=== PATIENT | female | born 1935 | race Caucasian/White ===

== ENCOUNTER 2018-03-23 11:10 | Outpatient (CLI) | payer MEDICARE, MEDICAID | END 2018-03-23 23:59 | disposition home or self-care (01) | LOC: RAD 11:10 | PROVIDERS: ATTEND Psychiatry & Neurology Neurology | DX: G40.909 Epilepsy, unspecified, not intractable, without status epilepticus (principal); I10 Essential (primary) hypertension; Z87.891 Personal history of nicotine dependence | CPT/HCPCS: 95816 ==

== ENCOUNTER 2018-03-31 12:36 | Emergency (ER) | payer MEDICARE, MEDICAID ==
[~2018-03-31] VITALS: Ht 160 cm; Wt 50.0 kg
[2018-03-31 13:07] LABS: BASOPHILS % (AUTO) 0.5 % (0-1); EOSINOPHILS # (AUTO) 0.2 X10'3 (0-0.9); EOSINOPHILS % (AUTO) 2.5 % (0-6); HEMATOCRIT 39.6 % (35.0-45.0); HEMOGLOBIN 12.9 g/dl (12.0-16.0); LYMPHOCYTES # (AUTO) 1.5 X10'3 (1.1-4.8); MEAN CORPUSCULAR HEMOGLOBIN 30.6 PG (27.0-31.0); MEAN CORPUSCULAR HGB CONC 32.6 % (33.0-36.5); MEAN CORPUSCULAR VOLUME 93.8 FL (78-98); MEAN PLATELET VOLUME 8.4 FL (7.4-10.4); MONOCYTES # (AUTO) 0.4 X10'3 (0-0.9); NEUTROPHILS # (AUTO) 4.5 X10'3 (1.8-7.7); PLATELET COUNT 283 X10'3 (140-440); RED BLOOD COUNT 4.22 X10'6 (4.20-5.60); RED CELL DISTRIBUTION WIDTH 15.7 % (11.5-14.5); WHITE BLOOD COUNT 6.6 X10'3 (4.5-11.0)
[2018-03-31 13:19] LABS: ALANINE AMINOTRANSFERASE 21 U/L (12-78); ALBUMIN/GLOBULIN RATIO 1.1 (1.1-1.5); ALKALINE PHOSPHATASE 75 IU/L (46-116); ANION GAP 8 (8-16); ASPARTATE AMINO TRANSFERASE 24 U/L (10-37); BILIRUBIN,TOTAL 0.5 MG/DL (0.1-1.0); BLOOD UREA NITROGEN 17 MG/DL (7-18); BUN/CREATININE RATIO 15.9 (6.6-38.0); CALCIUM 9.7 MG/DL (8.5-10.1); CHLORIDE 105 MMOL/L (99-107); CREATININE 1.07 MG/DL (0.40-0.90); GLUCOSE 126 MG/DL (70-104); POTASSIUM 5.2 MMOL/L (3.5-5.1); SODIUM 144 MMOL/L (135-145); TOTAL CARBON DIOXIDE 31.3 MMOL/L (24-32); TOTAL PROTEIN 7.8 G/DL (6.4-8.2); eGFR 49 ML/MIN
[2018-03-31 13:29] LABS: ETHANOL < 0.010 GM/DL (0.0-0.010)
[2018-03-31 14:47] LABS: CLARITY,URINE CLOUDY (Clear); COLOR,URINE YELLOW (Yellow); GLUCOSE, URINE NEGATIVE (Neg); KETONES,URINE NEGATIVE (Neg); LEUKOCYTE ESTERASE ,URINE SMALL (Neg); NITRITES, URINE POSITIVE (Neg); OCCULT BLOOD,URINE NEGATIVE (Neg); PROTEIN,URINE NEGATIVE (Neg)
[2018-03-31 14:54] LABS: URINE AMPHETAMINE SCREEN NEGATIVE (Neg); URINE BARBITUATE SCREEN NEGATIVE (Neg); URINE BENZODIAZEPINES SCREEN POSITIVE (Neg); URINE CANNABINOID SCREEN NEGATIVE (Neg); URINE COCAINE SCREEN NEGATIVE (Neg); URINE METHADONE SCREEN NEGATIVE (Neg); URINE OPIATE SCREEN POSITIVE (Neg); URINE PHENCYCLIDINE SCREEN NEGATIVE (Neg)
[2018-03-31 14:55] LABS: UA COLLECTION TYPE CLN CATCH MIDSTREAM
[2018-03-31 15:01] LABS: BACTERIA,URINE 4+ /HPF (Neg); MUCUS STRANDS NONE SEEN /LPF (Neg); RBC,URINE NONE SEEN /HPF (0-2); SQUAMOUS EPITHELIAL CELL,UR FEW /LPF (FEW); WBC,URINE 50-100 /HPF (0-4)
[2018-03-31] MEDS: sulfamethoxazole/trimethoprim DS (800/160mg) tablet PO SCH ×2 (15:33→21:09)
[2018-03-31] MEDS: gabapentin 300mg capsule PO SCH ×2 (15:48→21:08)
[2018-03-31] MEDS ORDERED: gabapentin 400mg capsule PO SCH (16:00)
[2018-03-31] MEDS ORDERED: ACET-54 PO (17:20)
[2018-03-31] MEDS ORDERED: GABA300C PO (17:20)
[2018-03-31] MEDS ORDERED: ATOR20TA PO (17:20)
[2018-03-31] MEDS ORDERED: ASPI81TA52 PO (17:20)
[2018-03-31] MEDS ORDERED: FAMO20TA8 PO (17:20)
[2018-03-31] MEDS ORDERED: DULO20CA17 PO (17:20)
[2018-03-31] MEDS ORDERED: CARB200T8 PO ×2 (17:20)
[2018-03-31] MEDS ORDERED: TRAZ-218 PO (17:20)
[2018-03-31] MEDS ORDERED: ALPR-624 PO (17:20)
[2018-03-31] MEDS ORDERED: HYDR-4353 PO (17:20)
[2018-03-31] MEDS ORDERED: FOLI1TAB16 PO (17:20)
[2018-03-31] MEDS ORDERED: ALPRAZolam 0.5mg tablet PO PRN (17:50)
[2018-03-31] MEDS ORDERED: HYDROcodone/acetaminophen 10/325mg tab PO PRN (17:50)
[2018-03-31] MEDS ORDERED: acetaminophen 325mg tablet PO PRN (17:50)
[2018-03-31 18:15] LABS: CARBAMAZEPINE (TEGRETOL) < 0.5 UG/ML (4.0-12.0)
[2018-03-31 18:56] LABS: ACETAMINOPHEN < 2.0 UG/ML (10-30)
[2018-03-31] MEDS ORDERED: carBAMazepine 100mg chewable tablet PO SCH (21:00)
[2018-03-31] MEDS ORDERED: traZODone 50mg tablet PO SCH (21:00)
[2018-03-31] MEDS: famotidine 20mg tablet PO SCH (21:08)
[2018-04-01 05:30] VITALS: BP 136/82
[2018-04-01] MEDS ORDERED: duloxetine 20mg capsule.DR PO SCH (08:00)
[2018-04-01] MEDS ORDERED: carBAMazepine 100mg chewable tablet PO SCH (08:00)
[2018-04-01] MEDS: gabapentin 300mg capsule PO SCH ×3 (08:00→08:24)
[2018-04-01] MEDS ORDERED: aspirin 81mg tablet.DR PO SCH (08:00)
[2018-04-01] MEDS ORDERED: atorvastatin 20mg tablet PO SCH (08:00)
[2018-04-01] MEDS ORDERED: folic acid 1mg tablet PO SCH (08:00)
[2018-04-01] MEDS: famotidine 20mg tablet PO SCH (08:24)
[2018-04-01] MEDS: sulfamethoxazole/trimethoprim DS (800/160mg) tablet PO SCH (08:24)
[2018-04-01] MEDS ORDERED: CIPR-230 PO (10:46)
== END 2018-04-01 11:20 | disposition home or self-care (01) ==
LOC: ER 12:37
DX: N39.0 Urinary tract infection, site not specified (principal); R45.4 Irritability and anger; I25.10 Atherosclerotic heart disease of native coronary artery without angina pectoris; E78.00 Pure hypercholesterolemia, unspecified; I10 Essential (primary) hypertension; G89.29 Other chronic pain; L72.3 Sebaceous cyst; Z86.19 Personal history of other infectious and parasitic diseases; Z86.73 Personal history of transient ischemic attack (TIA), and cerebral infarction without residual deficits; Z95.1 Presence of aortocoronary bypass graft; Z60.2 Problems related to living alone; Z88.8 Allergy status to other drugs, medicaments and biological substances; Z79.82 Long term (current) use of aspirin; Z79.899 Other long term (current) drug therapy
CPT/HCPCS: 36415; 70450; 80053; 80156; 80305; 80320; 80329; 81001; 84443; 85025; 99285

== ENCOUNTER 2021-02-06 08:22 | Emergency (ER) | payer MEDICARE, MEDICAID ==
[~2021-02-06] VITALS: Ht 154.9 cm; Wt 50.0 kg
[~2021-02-06 08:22] MED LIST: ALPR-624 PO; ASPI81TA52 PO; ATOR20TA PO; CARB200T8 PO; DULO20CA18 PO; FAMO20TA8 PO; FOLI1TAB16 PO; GABA300C PO; HYDR-4353 PO; TRAZ-251 PO; [UNRECOGNIZED DRUG - CODE] PO
[2021-02-06] MEDS ORDERED: gabapentin 300mg capsule PO ONE (08:25)
[2021-02-06 09:29] LABS: CLARITY,URINE CLEAR (Clear); COLOR,URINE STRAW (Yellow); GLUCOSE, URINE NEGATIVE (Neg); KETONES,URINE TRACE mg/dl (Neg); LEUKOCYTE ESTERASE ,URINE NEGATIVE (Neg); NITRITES, URINE NEGATIVE (Neg); OCCULT BLOOD,URINE NEGATIVE (Neg); PH,URINE 7.5 (4.8-8.0); PROTEIN,URINE 100 mg/dl (Neg); UROBILINOGEN,URINE 0.2 E.U/dL (0.2-1.0)
[2021-02-06 09:31] LABS: UA COLLECTION TYPE FOLEY CATH
[2021-02-06 09:35] LABS: BACTERIA,URINE NONE SEEN /HPF (Neg); FINE GRANULAR CAST 0-3 /LPF (NEGATIVE); HYALINE CASTS 0-3 /LPF (NEGATIVE); MUCUS STRANDS NONE SEEN /LPF (Neg); RBC,URINE NONE SEEN /HPF (0-2); SQUAMOUS EPITHELIAL CELL,UR FEW /LPF (FEW); WBC,URINE NONE SEEN /HPF (0-4)
[2021-02-06 10:38] LABS: BASOPHILS % (AUTO) 0.4 % (0-1); EOSINOPHILS # (AUTO) 0.1 X10'3 (0-0.9); HEMATOCRIT 40.8 % (35.0-45.0); HEMOGLOBIN 13.2 g/dl (12.0-16.0); LYMPHOCYTES # (AUTO) 1.3 X10'3 (1.1-4.8); LYMPHOCYTES % (AUTO) 12.9 % (21-51); MEAN CORPUSCULAR HEMOGLOBIN 29.9 PG (27.0-31.0); MEAN CORPUSCULAR HGB CONC 32.4 g/dL (33.0-36.5); MEAN CORPUSCULAR VOLUME 92.4 FL (78-98); MONOCYTES # (AUTO) 0.7 X10'3 (0-0.9); MONOCYTES % (AUTO) 6.7 % (2-12); NEUTROPHILS # (AUTO) 7.9 X10'3 (1.8-7.7); PLATELET COUNT 315 X10'3 (140-440); RED BLOOD COUNT 4.42 X10'6 (4.20-5.60); RED CELL DISTRIBUTION WIDTH 18.1 % (11.5-14.5)
[2021-02-06 10:49] LABS: ALBUMIN 4.2 G/DL (3.4-5.0); ANION GAP 9 (8-16); BLOOD UREA NITROGEN 12 MG/DL (7-18); BUN/CREATININE RATIO 17.9 (6.6-38.0); CHLORIDE 105 MMOL/L (99-107); CREATININE 0.67 MG/DL (0.40-0.90); GLUCOSE 105 MG/DL (70-104); POTASSIUM 3.8 MMOL/L (3.5-5.1); SODIUM 143 MMOL/L (135-145); TOTAL CARBON DIOXIDE 29.4 MMOL/L (24-32); eGFR 83 ML/MIN
[2021-02-06 10:51] VITALS: BP 195/102
[2021-02-06 10:52] LABS: ALANINE AMINOTRANSFERASE 27 U/L (12-78); ALBUMIN 4.1 G/DL (3.4-5.0); ALBUMIN/GLOBULIN RATIO 1.3 (1.1-1.5); ALKALINE PHOSPHATASE 66 IU/L (46-116); ANION GAP 9 (8-16); ASPARTATE AMINO TRANSFERASE 26 U/L (10-37); BILIRUBIN,TOTAL 0.8 MG/DL (0.1-1.0); BLOOD UREA NITROGEN 12 MG/DL (7-18); BUN/CREATININE RATIO 18.2 (6.6-38.0); CALCIUM 9.2 MG/DL (8.5-10.1); CHLORIDE 106 MMOL/L (99-107); CREATININE 0.66 MG/DL (0.40-0.90); GLUCOSE 104 MG/DL (70-104); POTASSIUM 3.8 MMOL/L (3.5-5.1); SODIUM 144 MMOL/L (135-145); TOTAL CARBON DIOXIDE 29.5 MMOL/L (24-32); TOTAL PROTEIN 7.3 G/DL (6.4-8.2); eGFR 85 ML/MIN
== END 2021-02-06 11:54 | disposition home or self-care (01) ==
LOC: ER 08:23
DX: R32 Unspecified urinary incontinence (principal); R56.9 Unspecified convulsions; I25.10 Atherosclerotic heart disease of native coronary artery without angina pectoris; E78.00 Pure hypercholesterolemia, unspecified; I10 Essential (primary) hypertension; G89.29 Other chronic pain; F41.9 Anxiety disorder, unspecified; F32.9 Major depressive disorder, single episode, unspecified; Z86.73 Personal history of transient ischemic attack (TIA), and cerebral infarction without residual deficits; Z86.69 Personal history of other diseases of the nervous system and sense organs; Z86.19 Personal history of other infectious and parasitic diseases; Z98.890 Other specified postprocedural states; Z60.2 Problems related to living alone; Z88.8 Allergy status to other drugs, medicaments and biological substances; Z79.82 Long term (current) use of aspirin; Z79.899 Other long term (current) drug therapy
CPT/HCPCS: 36415; 70450; 80048; 80053; 81001; 85025; 99284

== ENCOUNTER 2021-02-08 07:57 | Inpatient (IN) | payer MEDICARE, MEDICAID ==
[~2021-02-08] VITALS: Ht 157.5 cm; Wt 40.0 kg
--- NOTE | 2021-02-08 09:15 | NUR ---
DR CEE AT BEDSIDE.
[2021-02-08] MEDS ORDERED: normal saline 1000ML IV soln IVB ONE (09:30)
--- NOTE | 2021-02-08 10:00 | NUR ---
TO CT SCAN.
[2021-02-08 10:36] LABS: CLARITY,URINE SLIGHTLY CLOUDY (Clear); COLOR,URINE YELLOW (Yellow); GLUCOSE, URINE NEGATIVE (Neg); KETONES,URINE NEGATIVE (Neg); LEUKOCYTE ESTERASE ,URINE NEGATIVE (Neg); NITRITES, URINE NEGATIVE (Neg); OCCULT BLOOD,URINE NEGATIVE (Neg); PH,URINE 5.5 (4.8-8.0); PROTEIN,URINE 30 mg/dl (Neg); UROBILINOGEN,URINE 0.2 E.U/dL (0.2-1.0)
[2021-02-08 10:44] LABS: BASOPHILS % (AUTO) 0.5 % (0-1); EOSINOPHILS # (AUTO) 0.1 X10'3 (0-0.9); EOSINOPHILS % (AUTO) 0.7 % (0-6); HEMATOCRIT 33.9 % (35.0-45.0); HEMOGLOBIN 10.7 g/dl (12.0-16.0); LYMPHOCYTES # (AUTO) 1.7 X10'3 (1.1-4.8); LYMPHOCYTES % (AUTO) 17.4 % (21-51); MEAN CORPUSCULAR HEMOGLOBIN 29.9 PG (27.0-31.0); MEAN CORPUSCULAR HGB CONC 31.5 g/dL (33.0-36.5); MEAN PLATELET VOLUME 8.2 FL (7.4-10.4); MONOCYTES # (AUTO) 0.9 X10'3 (0-0.9); MONOCYTES % (AUTO) 9.5 % (2-12); NEUTROPHILS # (AUTO) 6.8 X10'3 (1.8-7.7); NEUTROPHILS % (AUTO) 71.9 % (42-75); PLATELET COUNT 257 X10'3 (140-440); RED BLOOD COUNT 3.57 X10'6 (4.20-5.60); RED CELL DISTRIBUTION WIDTH 18.9 % (11.5-14.5); WHITE BLOOD COUNT 9.5 X10'3 (4.5-11.0)
[2021-02-08 10:48] LABS: UA COLLECTION TYPE STRAIGHT CATH
[2021-02-08 10:51] LABS: SQUAMOUS EPITHELIAL CELL,UR FEW /LPF (FEW)
[2021-02-08 10:54] LABS: BACTERIA,URINE FEW /HPF (Neg); RBC,URINE 0-2 /HPF (0-2); WBC,URINE 0-4 /HPF (0-4)
[2021-02-08 10:55] LABS: ALANINE AMINOTRANSFERASE 23 U/L (12-78); ALBUMIN 3.6 G/DL (3.4-5.0); ALBUMIN/GLOBULIN RATIO 1.2 (1.1-1.5); ALKALINE PHOSPHATASE 52 IU/L (46-116); ANION GAP 10 (8-16); ASPARTATE AMINO TRANSFERASE 23 U/L (10-37); BILIRUBIN,TOTAL 0.5 MG/DL (0.1-1.0); BLOOD UREA NITROGEN 37 MG/DL (7-18); BUN/CREATININE RATIO 14.3 (6.6-38.0); CALCIUM 8.9 MG/DL (8.5-10.1); CHLORIDE 107 MMOL/L (99-107); CREATININE 2.58 MG/DL (0.40-0.90); GLUCOSE 97 MG/DL (70-104); POTASSIUM 3.9 MMOL/L (3.5-5.1); SODIUM 144 MMOL/L (135-145); TOTAL CARBON DIOXIDE 26.7 MMOL/L (24-32); TOTAL PROTEIN 6.5 G/DL (6.4-8.2); eGFR 18 ML/MIN
[2021-02-08 11:39] LABS: ANISOCYTOSIS 2+; ELLIPTOCYTES FEW; PLATELET ESTIMATE NORMAL; TEAR DROP CELLS FEW
[2021-02-08] MEDS ORDERED: acetaminophen 325mg tablet PO PRN (11:40)
[2021-02-08] MEDS ORDERED: magnesium 2GM in 50ml NS 50 ML IV PRN (11:40)
[2021-02-08] MEDS ORDERED: potassium Cl 20 mEq SR tablet PO PRN ×2 (11:40)
[2021-02-08] MEDS ORDERED: potassium Cl 40MEQ/1/2NS 520ml 520 ML IV PRN ×2 (11:40)
[2021-02-08] MEDS ORDERED: magnesium Cl slow-release 64mg tablet PO PRN (11:40)
[2021-02-08] MEDS ORDERED: magnesium hydroxide 30ml (MOM) UD suspension PO PRN (11:40)
[2021-02-08] MEDS ORDERED: magnesium 4gm in 100ml NS 100 ML IV PRN (11:40)
[2021-02-08] MEDS ORDERED: mag hydrox/Alum hydrox/simeth 30ml oral suspension PO PRN (11:40)
[2021-02-08] MEDS ORDERED: ondansetron/PF 4mg/2ml inj IV PRN (11:40)
[2021-02-08] MEDS ORDERED: CHOL100025 PO (16:35)
[2021-02-08] MEDS ORDERED: FLUT16SP2 BOTHNARES (16:35)
[2021-02-08] MEDS ORDERED: SIME80TA15 PO (16:35)
[2021-02-08] MEDS ORDERED: BACL-11 PO (16:38)
--- NOTE | 2021-02-08 16:49 | NUR ---
microbiological lab technician at bedside .
[2021-02-08] MEDS: docusate sod 100mg capsule PO SCH (20:00)
[2021-02-08] MEDS: K and/or MAG REPLACEMENT MC SCH (20:00)
[2021-02-08] MEDS: heparin, porcine 5000 units/ml vial SQ SCH (20:00)
--- NOTE | 2021-02-09 07:26 | NUR ---
PAGER ID: [phone] MESSAGE: [id number], ER patient Finch, is here for acute kidney injury and has no iv fluids ordered? edmar [id number]
[2021-02-09] MEDS: normal saline 1000ml 1,000 ML IV SCH ×3 (07:35→19:56)
[2021-02-09] MEDS: docusate sod 100mg capsule PO SCH ×2 (08:00→19:52)
[2021-02-09] MEDS: K and/or MAG REPLACEMENT MC SCH ×2 (08:00→19:23)
[2021-02-09] MEDS: HYDROcodone/acetaminophen 5mg/325mg tablet PO PRN ×2 (09:10→19:55)
[2021-02-09 09:52] LABS: BASOPHILS % (AUTO) 0.5 % (0-1); EOSINOPHILS # (AUTO) 0.1 X10'3 (0-0.9); EOSINOPHILS % (AUTO) 1.7 % (0-6); HEMATOCRIT 34.5 % (35.0-45.0); LYMPHOCYTES # (AUTO) 0.9 X10'3 (1.1-4.8); LYMPHOCYTES % (AUTO) 10.9 % (21-51); MEAN CORPUSCULAR HEMOGLOBIN 30.3 PG (27.0-31.0); MEAN CORPUSCULAR VOLUME 94.7 FL (78-98); MEAN PLATELET VOLUME 8.1 FL (7.4-10.4); MONOCYTES # (AUTO) 0.6 X10'3 (0-0.9); MONOCYTES % (AUTO) 6.7 % (2-12); NEUTROPHILS # (AUTO) 6.7 X10'3 (1.8-7.7); NEUTROPHILS % (AUTO) 80.2 % (42-75); PLATELET COUNT 275 X10'3 (140-440); RED BLOOD COUNT 3.65 X10'6 (4.20-5.60); RED CELL DISTRIBUTION WIDTH 18.4 % (11.5-14.5); WHITE BLOOD COUNT 8.3 X10'3 (4.5-11.0)
[2021-02-09 10:09] LABS: ALANINE AMINOTRANSFERASE 21 U/L (12-78); ALBUMIN 3.2 G/DL (3.4-5.0); ALBUMIN/GLOBULIN RATIO 1.1 (1.1-1.5); ALKALINE PHOSPHATASE 54 IU/L (46-116); ANION GAP 8 (8-16); ASPARTATE AMINO TRANSFERASE 21 U/L (10-37); BILIRUBIN,TOTAL 0.4 MG/DL (0.1-1.0); BLOOD UREA NITROGEN 25 MG/DL (7-18); BUN/CREATININE RATIO 22.9 (6.6-38.0); CHLORIDE 110 MMOL/L (99-107); CREATININE 1.09 MG/DL (0.40-0.90); GLUCOSE 108 MG/DL (70-104); MAGNESIUM 1.9 MG/DL (1.5-2.4); POTASSIUM 4.1 MMOL/L (3.5-5.1); SODIUM 145 MMOL/L (135-145); TOTAL CARBON DIOXIDE 27.3 MMOL/L (24-32); TOTAL PROTEIN 6.2 G/DL (6.4-8.2); eGFR 48 ML/MIN
[2021-02-09 11:11] VITALS: BP 157/76
[2021-02-09] MEDS ORDERED: acetaminophen 325mg tablet PO PRN (12:50)
[2021-02-09] MEDS: gabapentin 300mg capsule PO SCH ×2 (14:54→19:53)
[2021-02-09] MEDS: heparin, porcine 5000 units/ml vial SQ SCH ×2 (14:55→19:56)
[2021-02-09] MEDS: simethicone 80mg chew tab PO SCH (16:15)
[2021-02-09] MEDS: baclofen 10mg tablet PO SCH (16:15)
[2021-02-09 18:00] VITALS: BP 146/66
--- NOTE | 2021-02-09 18:19 | NUR ---
Problems reprioritized. Patient report given, questions answered & plan of care reviewed with Mimi DIAZ.
[2021-02-09] MEDS: famotidine 20mg tablet PO SCH (19:54)
[2021-02-09] MEDS ORDERED: traZODone 50mg tablet PO SCH (21:00)
[2021-02-10] VITALS: BP 108/74
[2021-02-10] MEDS: simethicone 80mg chew tab PO SCH ×2 (00:55→08:15)
[2021-02-10] MEDS: baclofen 10mg tablet PO SCH ×2 (00:56→08:11)
[2021-02-10 05:20] VITALS: BP_SYST 174; BP_SYST 177; BP_SYST 181; BP_DIAS 72; BP_DIAS 77
[2021-02-10 05:40] LABS: BASOPHILS % (AUTO) 0.7 % (0-1); EOSINOPHILS # (AUTO) 0.2 X10'3 (0-0.9); EOSINOPHILS % (AUTO) 2.8 % (0-6); HEMATOCRIT 32.2 % (35.0-45.0); HEMOGLOBIN 10.3 g/dl (12.0-16.0); LYMPHOCYTES # (AUTO) 2.2 X10'3 (1.1-4.8); LYMPHOCYTES % (AUTO) 32.3 % (21-51); MEAN CORPUSCULAR HEMOGLOBIN 30.3 PG (27.0-31.0); MEAN CORPUSCULAR HGB CONC 31.9 g/dL (33.0-36.5); MEAN PLATELET VOLUME 8.1 FL (7.4-10.4); MONOCYTES # (AUTO) 0.6 X10'3 (0-0.9); NEUTROPHILS # (AUTO) 3.7 X10'3 (1.8-7.7); NEUTROPHILS % (AUTO) 55.2 % (42-75); PLATELET COUNT 245 X10'3 (140-440); RED BLOOD COUNT 3.39 X10'6 (4.20-5.60); RED CELL DISTRIBUTION WIDTH 18.5 % (11.5-14.5); WHITE BLOOD COUNT 6.7 X10'3 (4.5-11.0)
[2021-02-10 06:10] LABS: ALANINE AMINOTRANSFERASE 19 U/L (12-78); ALBUMIN 2.9 G/DL (3.4-5.0); ALBUMIN/GLOBULIN RATIO 1.1 (1.1-1.5); ALKALINE PHOSPHATASE 48 IU/L (46-116); ANION GAP 6 (8-16); ASPARTATE AMINO TRANSFERASE 20 U/L (10-37); BILIRUBIN,TOTAL 0.5 MG/DL (0.1-1.0); BLOOD UREA NITROGEN 13 MG/DL (7-18); BUN/CREATININE RATIO 14.1 (6.6-38.0); CALCIUM 8.1 MG/DL (8.5-10.1); CHLORIDE 113 MMOL/L (99-107); CREATININE 0.92 MG/DL (0.40-0.90); GLUCOSE 91 MG/DL (70-104); MAGNESIUM 1.6 MG/DL (1.5-2.4); POTASSIUM 3.8 MMOL/L (3.5-5.1); SODIUM 146 MMOL/L (135-145); TOTAL CARBON DIOXIDE 27.2 MMOL/L (24-32); TOTAL PROTEIN 5.5 G/DL (6.4-8.2); eGFR 58 ML/MIN
--- NOTE | 2021-02-10 06:49 | NUR ---
Patient in room [facility]TH[facility] 4009. I have received report from EMILY Le and had the opportunity to ask questions and assume patient care.
[2021-02-10] MEDS ORDERED: aspirin 81mg, enteric-coated 1 TAB TABLET.DR PO SCH (08:00)
[2021-02-10] MEDS: K and/or MAG REPLACEMENT MC SCH (08:00)
[2021-02-10] MEDS ORDERED: cholecalciferol (vitamin D3) 1,000 unit (25mcg) tablet PO SCH (08:00)
[2021-02-10] MEDS ORDERED: fluticasone nasal spray 16GM bottle NS SCH (08:00)
[2021-02-10] MEDS ORDERED: duloxetine 20mg capsule.DR PO SCH (08:00)
[2021-02-10] MEDS ORDERED: folic acid 1mg tablet PO SCH (08:00)
[2021-02-10] MEDS ORDERED: atorvastatin 20mg tablet PO SCH (08:00)
[2021-02-10] MEDS: docusate sod 100mg capsule PO SCH (08:13)
[2021-02-10] MEDS: gabapentin 300mg capsule PO SCH (08:13)
[2021-02-10] MEDS: famotidine 20mg tablet PO SCH (08:14)
[2021-02-10] MEDS: heparin, porcine 5000 units/ml vial SQ SCH (08:16)
[2021-02-10 11:00] VITALS: BP 114/73
[2021-02-11] MEDS ORDERED: gabapentin 300mg capsule PO SCH (21:00)
== END 2021-02-10 15:45 | disposition home or self-care (01) | DRG 641 ==
LOC: ER 07:58 → ED HOLD 11:45 → UNDOADMIN 11:45 → EDBEDREQ 02-09 08:08 → ORTHO 4S 02-09 10:00 → SUR 3N 02-10 10:10
PROVIDERS: ADMIT Internal Medicine; ATTEND Internal Medicine
DX: E86.0 Dehydration (principal); N17.9 Acute kidney failure, unspecified; R29.6 Repeated falls; I10 Essential (primary) hypertension; S09.90XA Unspecified injury of head, initial encounter; S00.12XA Contusion of left eyelid and periocular area, initial encounter; E78.00 Pure hypercholesterolemia, unspecified; E78.5 Hyperlipidemia, unspecified; I25.10 Atherosclerotic heart disease of native coronary artery without angina pectoris; S00.11XA Contusion of right eyelid and periocular area, initial encounter; B19.20 Unspecified viral hepatitis C without hepatic coma; W18.39XA Other fall on same level, initial encounter; Z60.2 Problems related to living alone; M54.9 Dorsalgia, unspecified; F32.9 Major depressive disorder, single episode, unspecified; F41.9 Anxiety disorder, unspecified; G89.29 Other chronic pain; Z86.73 Personal history of transient ischemic attack (TIA), and cerebral infarction without residual deficits; Z87.891 Personal history of nicotine dependence; Z95.1 Presence of aortocoronary bypass graft; Y93.89 Activity, other specified; Y92.89 Other specified places as the place of occurrence of the external cause; Y99.8 Other external cause status; Z88.8 Allergy status to other drugs, medicaments and biological substances; Z91.013 Allergy to seafood; Z79.899 Other long term (current) drug therapy
CPT/HCPCS: 36415; 70450; 71045; 73030; 80048; 80053; 81001; 83735; 85008; 85025; 87081; 93306; 97110; 97161; 97530; 99285; G0378; J1644; J7030

== ENCOUNTER 2021-02-28 07:19 | Emergency (ER) | payer MEDICARE, MEDICAID ==
[~2021-02-28 07:19] MED LIST changes: -ALPR-624 PO; -CARB200T8 PO; +CHOL100025 PO; +FLUT16SP2 BOTHNARES; -HYDR-4353 PO; +SIME80TA15 PO
[2021-02-28 09:29] VITALS: BP 193/113
--- NOTE | 2021-02-28 09:43 | NUR ---
pt changed, new diaper applied
== END 2021-02-28 10:30 | disposition home or self-care (01) ==
LOC: ER 07:20
DX: S00.83XA Contusion of other part of head, initial encounter (principal); M54.5 Low back pain; F03.91 Unspecified dementia, unspecified severity, with behavioral disturbance; I10 Essential (primary) hypertension; G89.29 Other chronic pain; I25.10 Atherosclerotic heart disease of native coronary artery without angina pectoris; E78.00 Pure hypercholesterolemia, unspecified; Z86.19 Personal history of other infectious and parasitic diseases; Z86.73 Personal history of transient ischemic attack (TIA), and cerebral infarction without residual deficits; Z95.5 Presence of coronary angioplasty implant and graft; Z88.8 Allergy status to other drugs, medicaments and biological substances; Z91.013 Allergy to seafood; Z79.82 Long term (current) use of aspirin; Z79.899 Other long term (current) drug therapy; W19.XXXA Unspecified fall, initial encounter; Y93.89 Activity, other specified; Y92.89 Other specified places as the place of occurrence of the external cause; Y99.8 Other external cause status
CPT/HCPCS: 70450; 72125; 72128; 72131; 99285

== ENCOUNTER 2021-04-23 03:40 | Emergency (ER) | payer MEDICARE, MEDICAID ==
[~2021-04-23] VITALS: Ht 157.5 cm; Wt 50.0 kg
[2021-04-23 04:14] LABS: CLARITY,URINE SLIGHTLY CLOUDY (Clear); COLOR,URINE STRAW (Yellow); GLUCOSE, URINE NEGATIVE (Neg); KETONES,URINE NEGATIVE (Neg); NITRITES, URINE NEGATIVE (Neg); OCCULT BLOOD,URINE TRACE-INTACT (Neg); PROTEIN,URINE 100 mg/dl (Neg); UA COLLECTION TYPE STRAIGHT CATH
[2021-04-23 04:15] LABS: LEUKOCYTE ESTERASE ,URINE NEGATIVE (Neg); UROBILINOGEN,URINE 0.2 E.U/dL (0.2-1.0)
[2021-04-23 04:22] LABS: SQUAMOUS EPITHELIAL CELL,UR FEW /LPF (FEW)
[2021-04-23 04:23] LABS: BACTERIA,URINE NONE SEEN /HPF (Neg); RBC,URINE 0-2 /HPF (0-2); WBC,URINE 0-4 /HPF (0-4)
[2021-04-23 04:37] VITALS: BP 171/111
[2021-04-23] MEDS ORDERED: OXYB5TAB16 PO (05:34)
== END 2021-04-23 07:18 | disposition home or self-care (01) ==
LOC: ER 03:41
DX: N32.89 Other specified disorders of bladder (principal); R35.0 Frequency of micturition; G89.29 Other chronic pain; M54.89 Other dorsalgia; I25.10 Atherosclerotic heart disease of native coronary artery without angina pectoris; E78.00 Pure hypercholesterolemia, unspecified; I10 Essential (primary) hypertension; F41.9 Anxiety disorder, unspecified; F32.9 Major depressive disorder, single episode, unspecified; Z86.73 Personal history of transient ischemic attack (TIA), and cerebral infarction without residual deficits; Z86.69 Personal history of other diseases of the nervous system and sense organs; Z86.19 Personal history of other infectious and parasitic diseases; Z98.890 Other specified postprocedural states; Z60.2 Problems related to living alone; Z91.013 Allergy to seafood; Z88.8 Allergy status to other drugs, medicaments and biological substances; Z79.82 Long term (current) use of aspirin; Z79.899 Other long term (current) drug therapy
CPT/HCPCS: 81001; 99283